=== PATIENT | female | born 1990 | race African-American/Black ===

== ENCOUNTER 2017-02-02 12:38 | Emergency (ER) | payer MEDICAID, OTHER ==
[~2017-02-02] VITALS: Ht 167.6 cm; Wt 63.5 kg
[2017-02-02 12:58] VITALS: BP 125/75
--- NOTE | 2017-02-02 13:35 | NUR ---
Lavonne porter in [facility] - 02/02/17 at 1336 by [facility] Pt w/c assisted to bed 5
--- NOTE | 2017-02-02 13:40 | NUR ---
Pt ambulated to bed 6.
--- NOTE | 2017-02-02 13:48 | NUR ---
PT CAME TO ER DUE TO t/c last wednesday 1130 pm, seatbelt on, pt is the [employer];headache,dizziness,nausea, back pain and neck pain started last wednesday; denies loss of consciousness at the time of incident;no medical history;Denies cp/sob/fever/n/v;no acute distress noted at this time;hob elevated;needs attended;safety measures instituted;md made aware of pt's condition.
[2017-02-02] MEDS ORDERED: oxyCODONE/APAP 5/325 MG 1 TAB TAB PO ONE (14:15)
[2017-02-02] MEDS ORDERED: IBUPROFEN 600 MG TAB PO ONE (14:15)
--- NOTE | 2017-02-02 14:24 | NUR ---
PT TAKEN TO XRAY VIA WHEEL CHAIR BY AMISHA ANGEL
--- NOTE | 2017-02-02 14:45 | NUR ---
BACK FROM XRAY;NO ACUTE DISTRESS NOTED AT THIS TIME;WILL CONTINUE TO MONITOR PT.
--- NOTE | 2017-02-02 15:02 | NUR ---
PT LYING ON BED COMFORTABLY;NO ACUTE DISTRESS NOTED AT THIS TIME;WILL CONTINUE TO MONITOR PT.
--- NOTE | 2017-02-02 15:25 | NUR ---
EKG AT BEDSIDE
--- NOTE | 2017-02-02 15:59 | NUR ---
Patient discharged with v/s stable. Written and verbal after care instructions given and explained. Patient alert, oriented and verbalized understanding of instructions. Ambulatory with steady gait. All questions addressed prior to discharge. ID band removed. Patient advised to follow up with PMD.Opportunity to ask questions provided and answered.ADVISED PT NOT TO DRIVE AND OPERATE MACHINES WHEN FEELING DIZZY AND PT AGREED W/ IT.
[2017-02-02 16:03] VITALS: BP 111/71
== END 2017-02-02 15:59 | disposition home or self-care (01) ==
LOC: MED 12:38
DX: M54.2 Cervicalgia (principal); V53.5XXA Driver of pick-up truck or van injured in collision with car, pick-up truck or van in traffic accident, initial encounter; Y93.89 Activity, other specified; Y92.89 Other specified places as the place of occurrence of the external cause; Y99.8 Other external cause status
CPT/HCPCS: 72072; 93005; 99284